=== PATIENT | male | born 2000 | race Caucasian/White ===

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

== ENCOUNTER → 2018-08-01 | Outpatient (CLI) | payer BC | LOC: ZCOL.LAB 15:58 | DX: J03.90 Acute tonsillitis, unspecified (principal) ==